=== PATIENT | male | born 2000 | race Caucasian/White ===

== ENCOUNTER 2022-02-19 00:11 | Emergency (ER) | payer OTHER ==
[~2022-02-19] VITALS: Ht 177.8 cm; Wt 57.0 kg
[2022-02-19] MEDS ORDERED: LEVETIRACETAM 250MG TABLET PO STA (01:13)
[2022-02-19] MEDS ORDERED: KEPP250 PO (01:19)
[2022-02-19 01:23] VITALS: BP 125/86
== END 2022-02-19 02:11 | disposition home or self-care (01) ==
LOC: ER 00:34
DX: G40.909 Epilepsy, unspecified, not intractable, without status epilepticus (principal)
CPT/HCPCS: 99283